=== PATIENT | male | born 1995 | race Caucasian/White ===

== ENCOUNTER 2016-12-20 23:07 | Emergency (ER) | payer SELFPAY ==
[~2016-12-20] VITALS: Ht 182.9 cm; Wt 86.2 kg
[2016-12-20 23:17] VITALS: BP 137/69
--- NOTE | 2016-12-20 23:18 | PHYS DOC ---
Adult General Chief Complaint Chief Complaint: LACERATION/AVULSION [facility] HPI Patient is a 21 year old male presents to the emergency department with complaints of right lower extremity laceration. He states he was walking past an air conditioner unit when he bumped into it and sustained laceration to the right lower extremity. He has no other complaints. Hemostasis obtained prior to arrival. Review of Systems Review of Systems Constitutional: Denies fever or chills [] Eyes: Denies change in visual acuity, redness, or eye pain [] HENT: Denies nasal congestion or sore throat [] Respiratory: Denies cough or shortness of breath [] Cardiovascular: No additional information not addressed in HPI [] GI: Denies abdominal pain, nausea, vomiting, bloody stools or diarrhea [] : Denies dysuria or hematuria [] Musculoskeletal: Denies back pain or joint pain [] Integument: laceration Neurologic: Denies headache, focal weakness or sensory changes [] Endocrine: Denies polyuria or polydipsia [] Current Medications Current Medications Current Medications Medications (Trade) Dose Ordered Sig/Adria Start Time Stop Time Status Last Admin Dose Admin Diphtheria/ Tetanus/Acell Pertussis (Boostrix) 0.5 ml ONCE ONCE 12/20/16 23:45 12/20/16 23:46 Lidocaine HCl 20 ml 1X ONCE 12/20/16 23:30 12/20/16 23:31 12/20/16 23:25 20 ML Allergies Allergies Allergies Coded Allergies Type Severity Reaction Last Updated Verified No Known Drug Allergies 12/20/16 No Physical Exam Physical Exam Constitutional: Well developed, well nourished, no acute distress, non-toxic appearance. [] HENT: Normocephalic, atraumatic, bilateral external ears normal, oropharynx moist, no oral exudates, nose normal. [] Eyes: PERRLA, EOMI, conjunctiva normal, no discharge. [] Neck: Normal range of motion, no tenderness, supple, no stridor. [] Cardiovascular:Heart rate regular rhythm, no murmur [] Lungs & Thorax: Bilateral breath sounds clear to auscultation [] Abdomen: Bowel sounds normal, soft, no tenderness, no masses, no pulsatile masses. [] Skin: Warm, dry, lower extremity, lateral aspect, 5 cm partial thickness laceration, hemostasis obtained prior arrival. Neurovascular intact distally. Full range of motion without difficulty. Back: No tenderness, no CVA tenderness. [] Extremities: No tenderness, no cyanosis, no clubbing, ROM intact, no edema. [] Neurologic: Alert and oriented X 3, normal motor function, normal sensory function, no focal deficits noted. [] Psychologic: Affect normal, judgement normal, mood normal. [] Current Patient Data Vital Signs Vital Signs Date Time Temp Pulse Resp B/P (MAP) Pulse Ox O2 Delivery O2 Flow Rate FiO2 12/20/16 23:17 98.0 85 20 98 Room Air 98.0 EKG EKG [] Radiology/Procedures Radiology/Procedures Procedure note: Right lower extremity cleansed with Betadine, anesthetized with 4 mL 2% lidocaine without epi. Wound explored for foreign body noted which are noted. Wound edges approximated with 6 chirag. Sling applied. Patient tolerated procedure well. [] Course & Med Decision Making Course & Med Decision Making Pertinent Labs and Imaging studies reviewed. (See chart for details) [] Dragon Disclaimer Dragon Disclaimer This electronic medical record was generated, in whole or in part, using a voice recognition dictation system. Departure Departure Impression: Primary Impression: Laceration of right leg excluding thigh Disposition: HOME, SELF-CARE Condition: STABLE Referrals: [facility] Patient Instructions: Diphtheria Toxoid; Tetanus Toxoid Adsorbed, DT, Td, Laceration Care, Adult, Staple Wound Closure, [id number] Problem Qualifiers Primary Impression: Laceration of right leg excluding thigh Encounter type: initial encounter Qualified Codes: S81.811A - Laceration without foreign body, right lower leg, initial encounter GABRIELLA ALMODOVAR APRN Dec 20, 2016 23:18
[2016-12-20] MEDS ORDERED: LIDOCAINE 2% 20 ML VIAL. IJ ONE (23:30)
[2016-12-20] MEDS ORDERED: DIPHTH,PERTUSS(ACELL),TET TOX 0.5 ML DISP.SYRIN. VAX IM ONE (23:45)
== END 2016-12-20 23:48 | disposition home or self-care (01) ==
LOC: ER 23:07
DX: S81.811A Laceration without foreign body, right lower leg, initial encounter (principal); W22.8XXA Striking against or struck by other objects, initial encounter; Y93.01 Activity, walking, marching and hiking; Y92.89 Other specified places as the place of occurrence of the external cause; Y99.8 Other external cause status
CPT/HCPCS: 12002; 90471; 90715; 96372; 99283-25; J2001

== ENCOUNTER 2016-12-31 18:50 | Emergency (ER) | payer SELFPAY ==
[~2016-12-31] VITALS: Ht 182.9 cm; Wt 86.2 kg
[2016-12-31 19:03] VITALS: BP 131/71
--- NOTE | 2016-12-31 19:15 | PHYS DOC ---
Past Medical History Past Medical History: No Pertinent History Past Surgical History: No Surgical History Alcohol Use: None Drug Use: Marijuana Adult General Chief Complaint Chief Complaint: SUTURE/STAPLE REMOVAL [facility] Patient is a 21 year old male presents to the emergency department stating that he had chirag placed in his right lower leg on 12/20. He denies any drainage or discharge coming from the area. He denies any redness streaking, fever or chills. Patient states he is pretty much kept it wrapped up to prevent any injury from the area. Also chirag appear to be intact at this time. Patent tetanus immunization was updated on 12/20. Review of Systems Review of Systems Constitutional: Denies fever or chills [] Eyes: Denies change in visual acuity, redness, or eye pain [] HENT: Denies nasal congestion or sore throat [] Respiratory: Denies cough or shortness of breath [] Cardiovascular: No additional information not addressed in HPI [] GI: Denies abdominal pain, nausea, vomiting, bloody stools or diarrhea [] : Denies dysuria or hematuria [] Musculoskeletal: Denies back pain or joint pain [] Integument: Denies rash or skin lesions. Presents for staple remover right lower leg. Neurologic: Denies headache, focal weakness or sensory changes [] Endocrine: Denies polyuria or polydipsia [] Allergies Allergies Allergies Coded Allergies Type Severity Reaction Last Updated Verified No Known Drug Allergies 12/20/16 No Physical Exam Physical Exam Constitutional: Well developed, well nourished, no acute distress, non-toxic appearance. [] HENT: Normocephalic, atraumatic, bilateral external ears normal, oropharynx moist, no oral exudates, nose normal. [] Eyes: PERRLA, EOMI, conjunctiva normal, no discharge. [] Neck: Normal range of motion, no tenderness, supple, no stridor. [] Cardiovascular:Heart rate regular rhythm Lungs & Thorax: No respiratory distress noted Skin: Warm, dry, no erythema, no rash. Patient with 6 chirag that appear to be intact for right lower leg. Edges appear to be approximated well. Extremities: No tenderness, no cyanosis, no clubbing, ROM intact, no edema. [] Neurologic: Alert and oriented X 3, normal motor function, normal sensory function, no focal deficits noted. [] Psychologic: Affect normal, judgement normal, mood normal. [] EKG EKG [] Radiology/Procedures Radiology/Procedures [] Course & Med Decision Making Course & Med Decision Making Pertinent Labs and Imaging studies reviewed. (See chart for details) 6 chirag were removed without difficulty. Telfa and Coban was placed over the area. Explained to patient to keep the area clean and dry. Continue to watch for signs and symptoms of infection. Patient agrees with discharge instructions , treatment regimens and follow-up recommendations. Signs and symptoms to return back to emergency department been provided. All questions and concerns been answered at patient's bedside. [] Dragon Disclaimer Dragon Disclaimer This electronic medical record was generated, in whole or in part, using a voice recognition dictation system. Departure Departure Impression: Primary Impression: Removal of chirag Disposition: HOME, SELF-CARE Condition: STABLE Referrals: NO PCP (PCP) Patient Instructions: Staple Care and Removal Additional Instructions: Keep the area clean and dry. Clean the site with soap and water and apply any antibiotic ointment as needed. Continue to watch for signs and symptoms of infection. Signs and symptoms of infection: Redness, warmth, tenderness or any yellow/ greenish drainage of a come from the site. You may take Tylenol or ibuprofen for pain and discomfort. Follow-up with primary care physician as needed. Return back to emergency prior signs symptoms of become worse. LOI OAKLEY APRN Dec 31, 2016 19:15
== END 2016-12-31 19:18 | disposition home or self-care (01) ==
LOC: ER 18:50
DX: S81.811D Laceration without foreign body, right lower leg, subsequent encounter (principal); X58.XXXD Exposure to other specified factors, subsequent encounter
CPT/HCPCS: 99281